=== PATIENT | female | born 1935 | race Caucasian/White ===

== ENCOUNTER 2023-10-25 21:43 | Inpatient (IN) | payer MEDICARE, BC, SELFPAY ==
[2023-10-25] VITALS (9 sets, daily range): BP systolic 159–211; BP diastolic 80–110; BMI 27.7; BMI 26.0
[2023-10-25 16:23] LABS: % Basophils 2.1 % (0-2); % Eosinophils 2.2 % (0-6); % Immature Granulocytes 2.2 % (0-0.5); % Lymphocytes 8.9 % (20.5-51.1); % Monocytes 4.1 % (1.7-9.3); % Neutrophils 80.5 % (42.2-75.2); Absolute Basophils 0.4 10^3/uL (0-0.2); Absolute Eosinophils 0.5 10^3/uL (0-0.7); Absolute Immature Granulocytes 0.5 10^3/uL (0-0.05); Absolute Lymphocytes 1.8 10^3/uL (1.2-3.4); Absolute Monocytes 0.8 10^3/uL (0.1-0.6); Absolute Neutrophils 16.5 10^3/uL (1.4-6.5); Hematocrit 42.6 % (37.0-47.0); Hemoglobin 12.3 g/dL (12.0-16.0); Mean Corp Hgb Conc. 28.9 g/dL (33.0-37.0); Mean Corpuscular Hgb 19.8 pg (27.0-31.0); Mean Corpuscular Volume 68.6 fL (81.0-99.0); Nucleated Red Blood Cells % 0.1 %; Platelet Count 560 10^3/uL (130-400); Red Blood Cell Count 6.21 10^6/uL (4.20-5.40); Red Cell Dist. Width 27.9 % (11.5-14.5); White Blood Cell Count 20.4 10^3/uL (4.8-10.8)
[2023-10-25 16:39] LABS: Normal RBC Morphology No
[2023-10-25 16:41] LABS: Anisocytosis 1+; Hypochromasia 2+; Microcytosis 1+; Ovalocytes 1+; Poikilocytosis 1+; Polychromasia Slight; Target Cells FEW
[2023-10-25 16:42] LABS: ALT (SGPT) 18 U/L (0-35); AST (SGOT) 27 U/L (14-36); Albumin 3.3 g/dl (3.5-5.0); Alkaline Phosphatase 112 U/L (38-126); Blood Urea Nitrogen 28 mg/dl (7-17); Calcium 9.5 mg/dl (8.4-10.2); Carbon Dioxide 22 mmol/L (22-30); Chloride 106 mmol/L (98-107); Glucose 116 mg/dl (70-99); Potassium 3.9 mmol/L (3.5-5.1); Sodium 137 mmol/L (135-145); Total Bilirubin 1.1 mg/dl (0.2-1.3); Total Protein 5.7 g/dl (6.3-8.2); eGFR 54.53
[2023-10-25 16:46] LABS: NT-proBNP 7780 pg/ml
--- NOTE | 2023-10-25 17:54 | ED.GENMED ---
History of Present Illness
General
Chief Complaint: Swelling
Time Seen by Provider: 10/25/23 17:54
Travel History
Have you had any contact with someone who has COVID-19?: No
Do you have any symptoms of coronavirus? Fever > 100 degrees, chills, cough, shortness of breath, sore throat, loss of taste or smell, muscle aches, or headache?: No
History of Present Illness
History of Present Illness:
HPI: Patient currently resides at the [facility]. Daughter notes that she has increasing lower extremity edema, she has nausea, some abdominal pain, and increased abdominal girth. Daughter also feels that she has been more short of breath. Daughter
thinks that she was recently started on a diuretic looking at the med list it appears that it was just low-dose HCTZ. She does not have a history of heart failure. She has had a cholecystectomy and hysterectomy in the past.
EXAM:
GENERAL: Appears in no distress
HEENT: Moist oral mucosa
CARDIOVASCULAR: Regular rate and rhythm
PULMONARY: No significant respiratory distress however the patient does have mild tachypnea, there is some faint rales at the bases
ABDOMEN: Minimal distention but is soft and only minimally tender with no peritoneal signs
NEUROLOGIC: The patient has evidence of dementia, oriented to month but not place, strength is equal in all extremities
EXTREMITIES: Moves all extremities equally, no tenderness, 2+ bilateral lower extremity edema, right greater than left lower extremity varicosities which are chronic
PYSCHIATRIC: Somewhat of a limited historian, limited insight and judgment
TIME OF INITIAL ENCOUNTER: 6 PM
NUMBER AND COMPLEXITY OF PROBLEMS ADDRESSED AT THE ENCOUNTER
� Chronic conditions affecting care: Cognitive impairment, A-fib, high blood pressure, GERD, frequent UTI, chronically elevated white count, anxiety/depression
� Acute Exacerbation and/or Progression of Chronic Illness: This is an acute problem
� Differential Diagnosis includes: New onset CHF, bowel obstruction, volume overload, although patient has a high white count, daughter states that the white count is chronically elevated and vital signs are not consistent with
sepsis
AMOUNT AND/OR COMPLEXITY OF DATA TO BE REVIEWED AND ANALYZED
� I performed an independent evaluation of and my interpretation is:
EKG:
CT: CT of the abdomen pelvis shows bilateral pleural effusions
X-rays: Chest x-ray shows pleural effusion
Laboratory Studies: White count 20.4, hemoglobin 12.3, platelets 560, chemistries relatively unremarkable, BNP 7780
Other:
� Review of other/old records: I reviewed crisis notes from last year regarding 302 which was denied; white count was 18.4 in May 2022
� Clinical information was obtained by an independent historian: I spoke to the daughter for the majority of the history, I also reviewed some of the notes including med list from the [facility]
� Prescriptions/Medications Considered but not given:
� Further testing considered but not performed:
RISK OF COMPLICATIONS AND/OR MORBIDITY OR MORTALITY OF PATIENT MANAGEMENT
� Social determinants of health affecting care: Lives at the [facility]
� Discussion with other providers: Hospitalist for admission at 8:50 PM
� Escalation of care including admission/observation vs risk of discharge considered: Suspected degree of volume overload�she was given empiric Lasix initially. Given the associated abdominal pain with nausea and prior abdominal
surgeries, CT imaging was obtained of the abdomen pelvis. The patient was given Lasix IV as well as nitroglycerin paste for presumed heart failure. It appears that they did try to give her some diuretic (appear to be HCTZ based on the paperwork)
for the lower extremity edema however this has not been working as an outpatient. Leukocytosis is reportedly chronic per family.
Past History
Past History
ED Past Medical History: Psychiatric
Social History
Tobacco: Non-smoker
Alcohol: None
Drug: None
Personal:
Living: with family
Employment: Retired
Family History
Family History: Other (Noncontributory)
Phy Exam
Physical Exam
Physical Exam:
See HPI
Scores
Heart Failure Risk
Heart Failure Risk Score: Not Applicable
Course
Orders/Labs/Results
Orders:
Orders
10/25/23 16:04
CMP [Comprehensive Metabolic Panel] Urgent
Complete Blood Count/With Diff Urgent
NT-proBNP Urgent
10/25/23 18:06
CT Abd/pelvis W Iv Cont Urgent
Comment:
Reason For Exam: abd distension nausea
Furosemide [Lasix] 40 mg IV NOW STA
Ondansetron Injectable [Zofran] 4 mg IV NOW STA
CR Chest - 2 Views Urgent
Comment:
Reason For Exam: edema
10/25/23 20:37
Nitroglycerin Ointment [Nitro-Bid] 1 inch TOPICAL NOW STA
10/25/23 20:51
Electrocardiogram (*1) Urgent
Reason for Study: Shortness of Breath
EKG- Treatment ONCE
10/25/23 21:20
Ferritin Stat
Procalcitonin Routine
PCT Algorithmm Indication: Respiratory
10/25/23 21:27
Admit/Transfer Patient As Directed
Co-Sign Provider:
Level of Care: Inpatient admission
Assign to:: Telemetry
Physician / Group: raoul alonso
Diagnosis: CHF
Reason for Telemetry: Subacute Heart Failure
Date to Stop Telemetry: 10/27/23
Time to Stop Telemetry: 11:00
Reason for Hospitalization: CHF
Expected length of stay greater than two midnights?: Yes
ELOS- Estimated Length of Stay in days: 3
I certify the patient meets the requirements for IP care: Yes
10/25/23 21:29
Code Status As Directed
Resuscitation Status: Do not resuscitate
Reached after discussion with pt or family/Healthcare POA: Yes
DNR Bracelet Application ONCE
10/27/23 11:00
DC Protocol for Telemetry ONCE
Abnormal Lab Results
10/25/23
16:04
WBC 20.4 H 10^3/uL
(4.8-10.8)
RBC 6.21 H 10^6/uL
(4.20-5.40)
MCV 68.6 L fL
(81.0-99.0)
MCH 19.8 L pg
(27.0-31.0)
MCHC 28.9 L g/dL
(33.0-37.0)
RDW 27.9 H %
(11.5-14.5)
Plt Count 560 H 10^3/uL
(130-400)
Abs Immat Gran (auto) 0.5 H 10^3/uL
(0-0.05)
Absolute Neuts (auto) 16.5 H 10^3/uL
(1.4-6.5)
Absolute Monos (auto) 0.8 H 10^3/uL
(0.1-0.6)
Absolute Basos (auto) 0.4 H 10^3/uL
(0-0.2)
Immature Gran % 2.2 H %
(0-0.5)
Neutrophils % 80.5 H %
(42.2-75.2)
Lymphocytes % 8.9 L %
(20.5-51.1)
Basophils % 2.1 H %
(0-2)
BUN 28 H mg/dl
(7-17)
Glucose 116 H mg/dl
(70-99)
Total Protein 5.7 L g/dl
(6.3-8.2)
Albumin 3.3 L g/dl
(3.5-5.0)
10/25/23 16:04
10/25/23 16:04
Vital Signs
Initial and Last Documented VS:
Initial Vital Signs
Temp Pulse Resp BP Pulse Ox
98.3 F 66 18 159/80 98
10/25/23 15:53 10/25/23 15:53 10/25/23 15:53 10/25/23 15:53 10/25/23 15:53
Last Documented Vital Signs
Temp Pulse Resp BP Pulse Ox
98.3 F 82 25 191/95 93
10/25/23 15:53 10/25/23 21:30 10/25/23 21:30 10/25/23 21:17 10/25/23 21:30
*Critical Care Note
Total Time (30-74mins, 75-104mins- exclusive of procedures): Not Applicable
ED Attending Note
-
Portions of this chart may have been created with voice recognition software.� Occasional wrong word or��sound alike� substitutions may have occurred due to the inherent limitations of voice recognition software.
Discharge Plan
Departure
Patient Disposition: Admit
Date of Disposition: 10/25/23
Time of Disposition: 20:50
Presentation/result/management discussed w/ accepting MD/DO: Hospitalist
Discharge Problem:
Congestive heart failure (CHF)
Interventions
Interventions:
*General Assessment Last Done: 10/25/23 18:58
*Neglect/Abuse Screening Last Done: 10/25/23 18:58
ED- Fall Risk Assessment Last Done: 10/25/23 18:58
*ED COVID-19 Vaccine History Last Done: 10/25/23 18:58
ED- Cardiac Assessment Last Done: 10/25/23 18:58
ED- Pulmonary Assessment Last Done: 10/25/23 18:58
ED-Skin Assessment Last Done: 10/25/23 20:48
[2023-10-25] MEDS: ZOFRAN 4 MG IV (18:49)
[2023-10-25] MEDS: LASIX 40 MG IV (18:51)
[2023-10-25] MEDS: NITRO-BID 1 INCH TOPICAL (20:45)
--- NOTE | 2023-10-25 20:53 | HPS.HSE ---
Addendum entered and electronically signed by Nirmal Rollins MD 10/25/23 23:49:
I saw and examined the patient.
The AIR BAG CURER or PA's note was reviewed and I agree with the note.
Comment: see my UPDATE NOTE
Original Note:
Family Physician
-
Family Physician: Immanuel Cazares
Chief Complaint
-
LE edema
History of Present Illness
88 year old with PMH for GOUT, atrial fib, htn , GERD, mood disorder, dementia presented to us with b/l LE edema for past two weeks. daughter noticed it today.patient noticed it two week ago. she was started on Lasix for five days and was switched
to HCTZ yesterday. daughter noticed increase in abdominal girth. denied chest pain, sob. denied fever, chills, cough, congestion. Patient denied headache, dizziness, syncopal episode. Patient denied abdominal pain, nausea, vomiting, diarrhea.
BNP elevated in ER. Chest x-ray, CT of chest with cardiomegaly. Patient received a dose of Lasix in ER. Patient received Nitrosate. Admitting for further management
Patient under palliative care for 3 weeks. She is under [facility] palliative care.
Medical History
Past Medical History
Past Medical History: Reports Other
Additional Past Medical History:
Degenerative joint disease
Hypertension
GERD
Hypertension
Varicose veins of the leg
Paroxysmal A-fib
Polycythemia vera
Past Surgical History: Reports Other
Additional Past Surgical History:
Hysterectomy
Bladder repair
Hernia surgery
Cholecystectomy
Phlebotomy
Social History
Tobacco: Former Smoker
Alcohol: Occasional
Drug: None
Personal: Single
Living: Assisted Living
Family History
Family History: Not pertinent
Allergies / Home Medications
Allergies reflects when Allergies were last updated in [employer].
Home Medications with original date entered in [employer]
Allergy/Medication List:
Allergies
Allergy/AdvReac Type Severity Reaction Status Date / Time
Penicillins Allergy Unknown Unknown Verified 05/31/23 13:58
Home Medications
allopurinol 300 mg tablet 300 mg PO DAILY 10/25/23
cholecalciferol (vitamin D3) 50 mcg (2,000 unit) tablet (Vitamin D3) 50 mcg PO DAILY 10/25/23
conjugated estrogens 0.625 mg/gram vaginal cream (Premarin) 0.625 mg vaginal MOTH 10/25/23
dabigatran etexilate 75 mg capsule 75 mg PO BID 10/25/23
diclofenac sodium 1 % topical gel 4 g topical QID PRN knee pain 10/25/23
escitalopram oxalate 5 mg tablet 5 mg PO DAILY 10/25/23
hydrochlorothiazide 12.5 mg capsule 12.5 mg PO DAILY 10/25/23
lisinopril 20 mg tablet 20 mg PO DAILY 10/25/23
lorazepam 0.5 mg tablet 0.5 mg PO Q6H PRN anxiety 10/25/23
metoprolol succinate 25 mg tablet,extended release 24 hr 25 mg PO DAILY 10/25/23
multivitamin (Daily-Elke tablet) 1 tab PO DAILY 10/25/23
nystatin-triamcinolone 100,000 unit/gram-0.1 % topical ointment 1 applic topical BID PRN apply to affected area 10/25/23
omega-3 acid ethyl esters 1 gram capsule (Lovaza) 1 cap PO DAILY 10/25/23
omeprazole 40 mg capsule,delayed release 40 mg PO DAILY 10/25/23
risperidone 0.25 mg tablet 0.25 mg PO BID 10/25/23
triamcinolone acetonide 0.1 % topical ointment 1 applic topical BID PRN rash on lower back 10/25/23
vitamin E (dl, acetate) 180 mg (400 unit) capsule 180 mg PO DAILY 10/25/23
Review of Systems
-
Constitutional: Reports No Symptoms
EENT: Reports No Symptoms
Respiratory: Reports No Symptoms
Cardiac: Reports No Symptoms
Abdomen/GI: Reports No Symptoms
: Reports No Symptoms
Musculoskeletal: Reports Edema (Bilateral lower extremities edema)
Skin: Reports No Symptoms
Neurological: Reports No Symptoms
Endocrine: Reports No Symptoms
Hematologic/Lymphatic: Reports No Symptoms
Psych: Reports No Symptoms
Physical Exam
Vital Signs
Vital Signs
Temp Pulse Resp BP Pulse Ox
98.3 F 88 18 184/102 91
10/25/23 15:53 10/25/23 20:45 10/25/23 20:17 10/25/23 20:45 10/25/23 20:17
Physical Exam
General: Well Developed, Well Nourished and No Apparent Distress
HEENT: NormoCephalic, Moist mucous membranes and Atraumatic
Respiratory: Clear
Cardiac: S1/S2 and Regular Rhythm; No Murmur or Rub
GI: Soft, Non Tender, Non Distended and Normal Bowel Sounds; No Organomegaly
Rectal: Deferred by Provider
Musculoskeletal: No Clubbing, No Cyanosis and Other (Bilateral lower extremities edema)
Skin: Rash
Neuro: AO x 3 and Nonfocal/grossly intact
Psych: Calm and Apparent Dementia
Laboratory Results
-
10/25/23 16:04
10/25/23 16:04
Laboratory Results
Total Bilirubin 1.1 mg/dl (0.2-1.3) 10/25/23 16:04
AST 27 U/L (14-36) 10/25/23 16:04
ALT 18 U/L (0-35) 10/25/23 16:04
Alkaline Phosphatase 112 U/L (38-126) 10/25/23 16:04
Data Reviewed
-
Diagnostic Radiology: Report Reviewed by me
CT Scan: Report Reviewed by me
Lab Data: Labs Reviewed by me
Impression/Plan
-
# Lower extremities edema/short of breath/ likely from new onset CHF
-BNP 7780
-CT abdomen pelvis with impression of questionable transverse colon wall thickening which can be seen with colitis versus findings due to limited distention. Limited study without oral contrast.Moderate splenomegaly.Mild fecal material throughout
the colon.
Severe diverticulosis. No evidence of acute diverticulitis.Moderate splenomegaly.Simple left renal cyst. Stable Cardiomegaly.Moderate right and small left pleural effusions.Moderate left lower lobe and mild right middle lobe consolidation.
-Chest x-ray with impression of Findings suggesting mild bibasilar pneumonia.Mild cardiomegaly.Small right pleural effusion
-Received Lasix 40 in the ER
-Lasix 40 Mg IV continued
-Strict MARCELO
-Daily weight
-Fluid restriction
-Cardiology consult
# History of polycythemia vera
-WBCs 20.4
-Follows up with hematology as outpatient
# History of hypertension
-Blood pressure elevated in ER
-Nitropaste continued
-Hydralazine as needed for systolic BP greater than 160 and diastolic BP greater than 110
-Hold HCTZ
-Lisinopril continued
# Gout
-Allopurinol continued
# Paroxysmal A-fib
-Obtain EKG
-Pradaxa continued
-Metoprolol continued
# Anxiety/mood disorder/dementia
-Citalopram continued
-Lorazepam continued
-Risperidone continue
# GERD
-PPI continued
# DVT prophylaxis
-Pradaxa
# CODE STATUS
-DNR
--- NOTE | 2023-10-25 21:29 | W.PN.UPDATE ---
Addendum entered and electronically signed by Nirmal Rollins MD 10/25/23 22:56:
Laboratory Tests
10/25/23
21:20
Procalcitonin 0.23
Unremarkable PCT
- Will hold off ABx for now
Original Note:
Update Note
Progress Note Update
This note serves as an addendum to the H&P by information developer CARMELA Lakeshia KERN
I could not get any information from the patient as she has limited insightand error in HPI due to Dementia
Information gathered by chart review and speaking with daughter and son in law and the BARBERING INSTRUCTOR
HPI
88F Recently moved into [facility] , sent to ER [facility] HX Dementia, essential HTN on HCTZ/ BREANNA for Sameera edema:
Per daughter account:
Sameera edema
-Progressively worsened
- associated with nausea abdominal pain. No vomiting or diarrhea
- Daughter reports increased abdominal distension and pain but no pain and tenderness at ER on y exam
- Recently resumed HCTZ.
- HX CHF but not on Lasix, just on BB and ACEI
- No prior TTE in [facility]
- P Card at [facility] Dr Thang Mclain
Under palliative care started 3weeks ago at [facility] for extra resourdes per daughter
Has advanced directives for DNR
ROS:
No recent fever
Denied recent cough and colored sputum
hi WCC is chronic per daughter - unclear with definitive Dxes however per External summary report Dx; PCR
PHX
Primary HTN on Metoprolol, Lisinopril
GERD on PO PPI
Depression and anxiety on Lorazepam PRN , Ecitalporam, Risperidone BID
HX PCR not on active Rx
Reviewed VS: Afebrile HR 88 BP 210/92 RR 26- 18 POx 85- 91
PE
Gen: Not toxic looking , NAD
HEENT: anicteric, moist OM
Neck: supple , JVD
Lungs: mild tachypnea, faint rales at the bases
Cor: Irregular HR , no mm
Abdomen: soft and only minimally tender at
COMMISSARY AGENT: symmetric movements of all exts
MS: 2+ bilateral lower extremity edema,
Psych: limited historian, limited insight and judgment due to undelying dementia
Data
WCC 20
Hgb 12.3
MCV 68 Pending Ferritin
Plt 560
Cr 1.0 - baseline is 1.0 as of 05/29/21
eGFR 54
Unremarkable CMP
proBNP 7780
EKG report
ATRIAL FIBRILLATION
INCOMPLETE RIGHT BUNDLE BRANCH BLOCK
ABNORMAL ECG
NO PREVIOUS ECGS AVAILABLE
CXR: radiologist report
Findings suggesting mild bibasilar pneumonia.
Mild cardiomegaly.
Small right pleural effusion.
CT AP w IV contrast
Questionable transverse colon wall thickening which can be seen with colitis versus findings due to limited distention. Limited study without oral contrast.
- Moderate splenomegaly.
- Mild fecal material throughout the colon.
- Severe diverticulosis. No evidence of acute diverticulitis.
- Moderate splenomegaly
- Simple left renal cyst. Stable
- Cardiomegaly.
- Moderate right and small left pleural effusions.
- Moderate left lower lobe and mild right middle lobe consolidation.
No prior hospitalist admission
ASSESSMENT & PLAN
New acute CHF type unknown
Clinically hypervolemic with b/l Sameera edema
pro BNP 7780
HTN emergency
HX Primary HTN
P Card at [facility] Dr Thang Mclain
- cont. NTP
- add IV Hydralazine for SBP > 165, DBP > 110
- IV Lasix 40 daily.
- To hold HCTX
- FR 1000 cc for now
- cont. Lisinopril and Metoprolol succinate
- ECHO before DC
- CBC card consult
HX Prx AF ; In AF with control VR
- cont. BB
- on chr Pradaxa
CXR radiologist report suggesting mild bibasilar pneumonia.
No productive cough , no recent fever
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
- check PCT
- Hold of ABx for now
HX PCR with chronic leucocytosis & Thombocytosis
- P Glove Operator [facility]
HX Cognitive disorder - HX suggestive of mild dementia vs MCI
Under palliative care started 3weeks ago at [facility]
- DNR per advanced directives per daughter and son in law at bed side
DVT Px: on Pradaxa
Code: DNR
IP TLM
[2023-10-25 22:06] LABS: Procalcitonin 0.23 ng/ml (0.0-0.25)
[2023-10-25 22:29] LABS: Ferritin 16.3 ng/ml (11.1-264.0)
--- NOTE | 2023-10-25 23:30 | PTCARENOTE ---
Receive pt from ER. Pt alert oriented X3, confused to the place. Pt assist X1 to her bed, slow and weak. Pt comforted by son in law who is at the bedside. Pt's health history provided by pt's daughter (Rea) via phone. Pt on AFib on telemonitor.
BN=089/97, HR=84, T=97.8, RR=17, SpO2=97% on RA. Pt oriented to the room, bed alarm in place. Will continue to monitor the pt.
[2023-10-25] MEDS: NITRO-BID 0.5 INCH TOPICAL (23:47)
[2023-10-26] VITALS (7 sets, daily range): BP systolic 130–156; BP diastolic 68–92; PULSE 81; O2SAT 94; BMI 25.9
[2023-10-26] MEDS: NITRO-BID 0.5 INCH TOPICAL ×4 (05:19→23:06)
[2023-10-26] MEDS: PROTONIX 40 MG PO (07:44)
[2023-10-26] MEDS: ZYLOPRIM 300 MG PO (07:44)
[2023-10-26] MEDS: VITAMIN D3 (cholecalciferol) 50 MCG PO (07:44)
[2023-10-26] MEDS: LEXAPRO 5 MG PO (07:44)
[2023-10-26] MEDS: RISPERDAL 0.25 MG PO ×2 (07:44→20:34)
[2023-10-26] MEDS: TOPROL XL 25 MG PO (07:45)
[2023-10-26] MEDS: ATIVAN 0.5 MG PO ×3 (07:45→23:07)
[2023-10-26] MEDS: ZESTRIL 20 MG PO (07:45)
[2023-10-26] MEDS: LASIX 40 MG IV (07:46)
--- NOTE | 2023-10-26 07:50 | PTCARENOTE ---
Pt. very agitated, trying to leave her room thinking she is at the [facility] where she normally lives. This nurse unable to reorient her. Dr. Barnett and Nursing supervisor shed workers made aware. Pt. daughter called to update as well. PRN Ativan and morning
medications given as ordered.
--- NOTE | 2023-10-26 08:23 | W.PN.HOSP.TC ---
Today's Communication/Plan
-
see bold
Assessment / Plan
Assessment / Plan
Gen: NAD, Awake and alert
Eyes: EOMI, PERRLA, no scleral icterus.
Neck: supple.
CV: irreg/irreg, +S1/S2, no m/r/g.
Resp: CTAB, no rales, wheezes, or rhonchi.
Abd: +BS, soft, NT, ND
Skin: No rashes. 3+ B/L LE edema
Neuro: CN 2-12 intact, non-focal.
Psych: Normal mood and affect.
CXR: Findings suggesting mild bibasilar pneumonia. Mild cardiomegaly. Small right pleural effusion.
CT A/P: questionable transverse colon wall thickening which can be seen with colitis versus findings due to limited distention. Limited study without oral contrast.Moderate splenomegaly.Mild fecal material throughout the colon. Severe
diverticulosis. No evidence of acute diverticulitis.Moderate splenomegaly.Simple left renal cyst. Stable Cardiomegaly.Moderate right and small left pleural effusions.Moderate left lower lobe and mild right middle lobe consolidation.
Acute CHF:
-saturating well on RA
-proBNP 7780
-cont IV Lasix
-check echo
-I/Os, daily wts, FR
-Cardiology consult
Other problems:
Essential hypertension: Cont ACEi/BB, hydralazine PRN
h/o polycythemia vera
Gout: cont allopurinol
Paroxysmal A-fib: cont BB/Pradaxa
Anxiety/mood disorder/dementia: cont Celexa/Ativan/Risperidone
GERD: cont PPI
DNR/Pradaxa
Anticipated Discharge: 24 - 48 hours
Subjective/Interval History
-
Date of Service: October 26, 2023
Denies CP/SOB.
Objective Data
-
Labs:
Laboratory Results
10/26/23 10/26/23
06:10 06:11
WBC Pending
Hgb Pending
Hct Pending
Plt Count Pending
Sodium Pending
Potassium Pending
Chloride Pending
Carbon Dioxide Pending
BUN Pending
Creatinine Pending
Glucose Pending
Calcium Pending
Total Bilirubin Pending
AST Pending
ALT Pending
Alkaline Phosphatase Pending
Vital Signs:
Vital Signs
Temp Pulse Resp BP Pulse Ox
97.5 F 87 17 156/88 93
10/26/23 03:54 10/26/23 07:46 10/26/23 03:54 10/26/23 07:46 10/26/23 03:54
I&O
10/25/23 10/26/23 10/27/23
06:59 06:59 06:59
Intake Total 0 / 0
Balance 0 / 0
[2023-10-26 08:47] LABS: Hematocrit 42.5 % (37.0-47.0); Hemoglobin 12.3 g/dL (12.0-16.0); Mean Corp Hgb Conc. 28.9 g/dL (33.0-37.0); Mean Corpuscular Hgb 20.3 pg (27.0-31.0); Platelet Count 519 10^3/uL (130-400); Red Blood Cell Count 6.07 10^6/uL (4.20-5.40); Red Cell Dist. Width 27.8 % (11.5-14.5); White Blood Cell Count 17.2 10^3/uL (4.8-10.8)
--- NOTE | 2023-10-26 09:18 | CON.CAR ---
Addendum entered and electronically signed by Jorge Starks MD 10/26/23 11:09:
I saw and examined the patient.
The ORACLE TECHNICAL ARCHITECT's note was reviewed and I agree with the note.
Comment: 88F with AF admitted with HFpEF.
- diurese
- echo Saturday
- [id number] if not cost prohibitive
Original Note:
Consultation
Consultation Request
Date/Time Consultation Requested: 10/25/232302
Date/Time Consultation Performed: 10/26/23914
Requesting Provider: Lakeshia Cha
Performing Provider: Eulalia CORDERO for
Reason for Consultation: CHF
Medical History
-
Chief Complaint: LE edema
History of Present Illness:
88 y/o female (patient of Dr. Mclain) who has persistent AFIB on Pradaxa, GERD, hypertension, dementia, polycythemia vera who is here for evaluation of LE edema for 2 weeks per chart (patient forgetful). Of note, it looks like she lives at the
[facility] and has palliative care services, and that Lasix course was recently trialed as OP. She is admitted for management of acute CHF. CXR concerning for PNA per radiology read, but procal neg so abx held.
Past Medical History
Past Medical History: Arrhythmias, GERD, HTN and Other (dementia, polycythemia vera)
Social History
Living: Other (Lives at 'the [facility]')
Family History
Family History: Reviewed & Not Pertinent
Allergies / Home Medications
Allergy/AdvReac Type Severity Reaction Status Date / Time
Penicillins Allergy Unknown Unknown Verified 05/31/23 13:58
�Medication �Instructions �Recorded �Confirmed �Type
allopurinol 300 mg tablet 300 mg PO DAILY Gout 10/25/23 10/25/23 History
cholecalciferol (vitamin D3) 50 50 mcg PO DAILY Supplement 10/25/23 10/25/23 History
mcg (2,000 unit) tablet (Vitamin
D3)
conjugated estrogens 0.625 mg/gram 0.625 mg vaginal MOTH hormone 10/25/23 10/25/23 History
vaginal cream (Premarin)
dabigatran etexilate 75 mg capsule 75 mg PO BID Blood Clot 10/25/23 10/25/23 History
Prevention/Tx
diclofenac sodium 1 % topical gel 4 g topical QID PRN knee pain 10/25/23 10/25/23 History
escitalopram oxalate 5 mg tablet 5 mg PO DAILY Mental Health/Anxiety 10/25/23 10/25/23 History
hydrochlorothiazide 12.5 mg capsule 12.5 mg PO DAILY Blood Pressure 10/25/23 10/25/23 History
lisinopril 20 mg tablet 20 mg PO DAILY Blood Pressure 10/25/23 10/25/23 History
lorazepam 0.5 mg tablet 0.5 mg PO Q6H PRN anxiety 10/25/23 10/25/23 History
metoprolol succinate 25 mg 25 mg PO DAILY Blood Pressure 10/25/23 10/25/23 History
tablet,extended release 24 hr
multivitamin (Daily-Elke tablet) 1 tab PO DAILY Supplement 10/25/23 10/25/23 History
nystatin-triamcinolone 100,000 1 applic topical BID PRN apply to 10/25/23 10/25/23 History
unit/gram-0.1 % topical ointment affected area
omega-3 acid ethyl esters 1 gram 1 cap PO DAILY High Cholesterol 10/25/23 10/25/23 History
capsule (Lovaza)
omeprazole 40 mg capsule,delayed 40 mg PO DAILY Gastrointestinal 10/25/23 10/25/23 History
release Issue
risperidone 0.25 mg tablet 0.25 mg PO BID Mental 10/25/23 10/25/23 History
Health/Anxiety
triamcinolone acetonide 0.1 % 1 applic topical BID PRN rash on 10/25/23 10/25/23 History
topical ointment lower back
vitamin E (dl, acetate) 180 mg 180 mg PO DAILY Supplement 10/25/23 10/25/23 History
(400 unit) capsule
Review of Systems
-
History Source: Patient (forgetful) and Other (chart)
All other systems: Negative unless noted
Respiratory: Trouble Breathing (on and off per patient)
Musculoskeletal: Edema
Physical Exam
Vital Signs
Temp Pulse Resp BP Pulse Ox
98 F 87 18 156/88 95
10/26/23 07:45 10/26/23 07:46 10/26/23 07:45 10/26/23 07:46 10/26/23 07:45
Lab Results
10/26/23 06:11
Fui-W-Ssnyeyvhmpp Pept 7780 pg/ml 10/25/23 16:04
Physical Exam
General: Well Developed, Well Nourished and No Apparent Distress
HEENT: Normocephalic
Respiratory: Crackles (b/l bases)
Cardiac: Irregular Rhythm and Peripheral Edema (moderate BLE edema)
Musculoskeletal: Edema
Skin: Warm and Dry
Neuro: AO x 3
Psych: Calm
Impression / Plan
-
Acute HF, type unknown:
-BNP elevated, LE edema noted, pleural effusions on imaging, SOB on and off per patient
-echo 2019 normal- update echo
-agree with IV lasix, which requires intensive monitoring- AM labs pending
Persistent AFIB:
-stable, rate-controlled
-Continue BB and Pradaxa
HTN:
-on ACEI and BB
-monitor with diuresis
Data Reviewed
-
EKG: Tracing Personally Visualized and interpreted (AFIB with PVC's)
Radiology: Report Reviewed by me (CXR: 10/25/23- Findings suggesting mild bibasilar pneumonia. Mild cardiomegaly. Small right pleural effusion.)
CT Scan: Report Reviewed by me (CT scan: Questionable transverse colon wall thickening which can be seen with colitis versus findings due to limited distention. Severe diverticulosis. No evidence of acute diverticulitis. Mod splenomegaly.
Cardiomegaly. Mod R and small L pleural effusions. Moderate LLL and mild RML consolidation.)
Medical Tests (Nuc Med, Echo etc): Report Reviewed by me (normal OP echo 2019)
Labs: Labs Reviewed by me
[2023-10-26] MEDS: PRADAXA 75 MG PO ×2 (09:52→20:33)
--- NOTE | 2023-10-26 10:00 | PTCARENOTE ---
Pt. daughter at bedside, pt. calm and cooperative at this time resting in bed comfortably. Call mancini within reach.
--- NOTE | 2023-10-26 10:43 | CM ---
Patient seen at bedside with daughter. Patient daughter reports that her mother is from [facility] and is there as a non memory care resident level I due to being able to walk with walker and knowing family, cognition is mildly impaired per daughter
but she does focus on thoughts and daughter reports that she uses activities to distract patient. Patient daughter indicated that her sister did contact Palliative care recently and they are anticipating a nurse coming to [facility] to assess patient.
Patient daughter indicated that she was hoping patient would be able to return to Personal Care. Patient in fall 2022, daughter indicated that the relationship was not a good one. Patient PCP is Dr. Cazares, and [facility]
[place]. CM will continue to follow for discharge planning needs.
Plan; return to Personal care, watch for SNF needs; VN needs if able to return to personal care
[2023-10-26 10:55] LABS: ALT (SGPT) 16 U/L (0-35); AST (SGOT) 30 U/L (14-36); Alkaline Phosphatase 118 U/L (38-126); Blood Urea Nitrogen 26 mg/dl (7-17); Calcium 9.2 mg/dl (8.4-10.2); Carbon Dioxide 25 mmol/L (22-30); Chloride 102 mmol/L (98-107); Direct Bilirubin 0.4 mg/dl (0.0-0.4); Estimated Creatinine Clearance 33 ml/min; Glucose 65 mg/dl (70-99); HDL Cholesterol 50 mg/dl; LDL Cholesterol, Calculated 46 mg/dl; Magnesium 1.5 mg/dl (1.6-2.3); Sodium 139 mmol/L (135-145); Total Bilirubin 1.1 mg/dl (0.2-1.3); Total Cholesterol 108 mg/dl (50-199); Total Protein 5.3 g/dl (6.3-8.2); Triglyceride 63 mg/dl (10-149); Very Low Density Lipoprotein 12 mg/dl (0-30); eGFR 54.53
[2023-10-26 11:07] LABS: TSH Reflex To Free T4 5.74 uIU/ml (0.47-4.68)
[2023-10-26] MEDS: LIDOCAINE 4% PATCH 1 PATCH TOPICAL (17:37)
[2023-10-26] MEDS: TYLENOL 650 MG PO (17:38)
[2023-10-27] VITALS (8 sets, daily range): BP systolic 92–170; BP diastolic 56–99; BMI 25.7
[2023-10-27] MEDS: APRESOLINE 10 MG IV (05:16)
[2023-10-27] MEDS: NITRO-BID 0.5 INCH TOPICAL ×3 (05:16→16:50)
[2023-10-27] MEDS: ATIVAN 0.5 MG PO ×3 (05:17→17:57)
[2023-10-27] MEDS: TYLENOL 650 MG PO ×2 (05:18→11:41)
[2023-10-27 06:17] LABS: Hematocrit 44.7 % (37.0-47.0); Hemoglobin 12.8 g/dL (12.0-16.0); Mean Corp Hgb Conc. 28.6 g/dL (33.0-37.0); Mean Corpuscular Hgb 19.9 pg (27.0-31.0); Mean Corpuscular Volume 69.4 fL (81.0-99.0); Platelet Count 599 10^3/uL (130-400); Red Blood Cell Count 6.44 10^6/uL (4.20-5.40); Red Cell Dist. Width 27.5 % (11.5-14.5); White Blood Cell Count 20.4 10^3/uL (4.8-10.8)
[2023-10-27 06:34] LABS: Blood Urea Nitrogen 32 mg/dl (7-17); Calcium 9.3 mg/dl (8.4-10.2); Carbon Dioxide 27 mmol/L (22-30); Chloride 104 mmol/L (98-107); Estimated Creatinine Clearance 30 ml/min; Glucose 91 mg/dl (70-99); Sodium 135 mmol/L (135-145); eGFR 48.63
[2023-10-27] MEDS: REFRESH EYE DROPS (PF) 1 DROPS BOTH EYES (07:05)
[2023-10-27] MEDS: LIDOCAINE 4% PATCH 1 PATCH TOPICAL (07:37)
[2023-10-27] MEDS: TOPROL XL 25 MG PO (07:38)
[2023-10-27] MEDS: VITAMIN D3 (cholecalciferol) 50 MCG PO (07:38)
[2023-10-27] MEDS: PROTONIX 40 MG PO (07:39)
[2023-10-27] MEDS: LEXAPRO 5 MG PO (07:39)
[2023-10-27] MEDS: LASIX 40 MG IV (07:39)
[2023-10-27] MEDS: ZYLOPRIM 300 MG PO (07:39)
[2023-10-27] MEDS: RISPERDAL 0.25 MG PO ×2 (07:39→20:13)
[2023-10-27] MEDS: ZESTRIL 20 MG PO (07:39)
[2023-10-27] MEDS: PRADAXA 75 MG PO ×2 (07:39→20:13)
--- NOTE | 2023-10-27 10:12 | CM ---
Patient sleeping in room, patient son in law at bedside, plan remains to return to Personal care, will need to confirm with nursing that they can accept. CM will continue to follow for discharge planning needs.
Plan; return to personal care vs SNF
--- NOTE | 2023-10-27 10:29 | W.PN.CD ---
Today's Communication / Plan
-
- continue Lasix
- update echo tomorrow
Impression / Plan
-
Impression: 88F with AF admitted with HFpEF.
Plan:
Acute HF, type unknown:
- continue Lasix
- echo 2019 normal - update echo tomorrow
Persistent AFIB:
-stable, rate-controlled
-Continue BB and Pradaxa
HTN:
-on ACEI and BB
-monitor with diuresis
Dementia
Subjective: No CP, palps, or dyspnea. She reports blurriness.
Laboratory Data
10/27/23
05:57
WBC 20.4 H
Hgb 12.8
Plt Count 599 H
Creatinine 1.1 H
Selected Entries
10/25/23
23:27 10/27/23
06:00
Actual Weight 146 lb 9 oz 145 lb
Generic Name Dose Route Start Last Admin
Trade Name Freq PRN Reason Stop Dose Admin
Dabigatran 75 mg 10/26/23 08:00 10/27/23 07:39
Dabigatran Etexilate (Pradaxa) 75 Mg Capsule PO 11/23/23 07:59 75 mg
BID KJ
Lisinopril 20 mg 10/26/23 08:00 10/27/23 07:39
Lisinopril 20 Mg Tablet PO 11/23/23 07:59 20 mg
DAILY KJ
Metoprolol Succinate 25 mg 10/26/23 08:00 10/27/23 07:38
Metoprolol 25 Mg Extended Release Tablet PO 11/23/23 07:59 25 mg
DAILY KJ
Furosemide 40 mg 10/26/23 08:00 10/27/23 07:39
Furosemide 40 Mg (10 Mg/Ml) 4 Ml Vial IV 11/23/23 07:59 40 mg
DAILY KJ
Nitroglycerin 0.5 inch 10/26/23 00:00 10/27/23 05:16
Nitroglycerin 1 Inch/1 Gram Packet TOPICAL 11/23/23 00:00 0.5 inch
Q6 KJ
Physical Exam
Vital Signs/Labs
Vital Signs
Temp Pulse Resp BP Pulse Ox
36.4 C 76 18 160/77 96
10/27/23 07:29 10/27/23 07:38 10/27/23 07:29 10/27/23 07:38 10/27/23 07:35
10/26/23 10/27/23 10/28/23
06:59 06:59 06:59
Actual Weight 146 lb 145 lb
10/27/23 05:57
10/27/23 05:57
Magnesium 1.5 mg/dl (1.6-2.3) L 10/26/23 06:10
Triglycerides 63 mg/dl (10-149) 10/26/23 06:10
LDL Cholesterol, Calc 46 mg/dl 10/26/23 06:10
VLDL Cholesterol, Calc 12 mg/dl (0-30) 10/26/23 06:10
HDL Cholesterol 50 mg/dl 10/26/23 06:10
Free T4 1.10 ng/dl (0.78-2.19) 10/26/23 06:10
10/25/23
16:04
Jyv-T-Ynznwtvequr Pept 7780
Physical Exam
Constitutional: No acute distress
EENT: Anicteric and Moist mucous membranes
Cardiovascular: Systolic murmur absent, Diastolic murmur absent and Pedal edema present
Respiratory: Respiratory effort normal
GI: Soft, Distention absent and Non tender
Neuro/Psych: Alert
Data Reviewed
-
Date of Service: October 27, 2023
--- NOTE | 2023-10-27 13:19 | W.PN.HOSP.TC ---
Today's Communication/Plan
-
Doxy
Compression therapy
ECHO in am
Repeat CXR in am
Speech eval.
Assessment / Plan
Assessment / Plan
had ear ache and eye pain this am
None now
eye- pupils rective , no redness, no pain with palpation
Ears- Normal Ear drum mild cerumen left ear.
CVS: S1-S2 normal
Chest: CTA B/L
Abdomen: Soft, NT / Bowel sounds present
Extremities: B/L edema
SWITCH TENDER: Non focal exam, slightly confused.
CXR: Findings suggesting mild bibasilar pneumonia. Mild cardiomegaly. Small right pleural effusion.
CT A/P: questionable transverse colon wall thickening which can be seen with colitis versus findings due to limited distention. Limited study without oral contrast.Moderate splenomegaly.Mild fecal material throughout the colon. Severe
diverticulosis. No evidence of acute diverticulitis.Moderate splenomegaly.Simple left renal cyst. Stable Cardiomegaly.Moderate right and small left pleural effusions.Moderate left lower lobe and mild right middle lobe consolidation.
#Acute CHF:
-saturating well on RA
-proBNP 7780
-cont IV Lasix
-check echo
-I/Os, daily wts, FR
-Compression therapy to lower extremity
-Cardiology consult
#Pneumonia ON CT and CXR (Moderate left lower lobe and mild right middle lobe consolidation.)
In this elderly pt I will start AB, Doxy
Also get speech eval to rule out aspiration
If aspiration found, needs broader AB
# Questionable colitis on the CT however no abdominal pain
# Blurry vision earlier today-outpatient ophthalmology follow-up discussed with the patient's daughter
# Earache-no pathology found on exam
#Essential hypertension: Cont ACEi/BB, hydralazine PRN
#h/o polycythemia vera with splenomegaly
#Gout: cont allopurinol
#Paroxysmal A-fib: cont BB/Pradaxa
#Anxiety/mood disorder/dementia: cont Celexa/Ativan/Risperidone
#GERD: cont PPI
# Severe diverticulosis
#DVT Prophylaxis- Pradaxa
#DNR
Discussed with son-in-law at bedside
Discussed with daughter on the phone from son-in-law's phone. She is aware about compression therapy states that patient has not been using it since she has been to [place].
Discussed with nursing at bedside
Total time spent with examination, discussion with nursing, family, reviewing images, placing orders,51 minutes
Anticipated Discharge: 24 - 48 hours
Subjective/Interval History
-
Date of Service: October 27, 2023
Objective Data
-
Labs:
Laboratory Results
10/27/23
05:57
WBC 20.4 H
Hgb 12.8
Hct 44.7
Plt Count 599 H
Sodium 135
Potassium 4.0
Chloride 104
Carbon Dioxide 27
BUN 32 H
Creatinine 1.1 H
Glucose 91
Calcium 9.3
Vital Signs:
Vital Signs
Temp Pulse Resp BP Pulse Ox
97.7 F 69 16 110/64 96
10/27/23 11:33 10/27/23 11:41 10/27/23 11:33 10/27/23 11:41 10/27/23 11:33
I&O
10/26/23 10/27/23 10/28/23
06:59 06:59 06:59
Intake Total 0 / 0 900 / 900
Output Total 1400 / 1400
Balance 0 / 0 -500 / -500
[2023-10-27 13:55] LABS: Magnesium 1.4 mg/dl (1.6-2.3)
[2023-10-27 14:35] LABS: Urine Albumin 1+ (Neg - Trace); Urine Bilirubin Negative (Negative); Urine Color Yellow; Urine Glucose Negative (Negative); Urine Ketone Negative (Negative); Urine Leukocyte 2+ (Negative); Urine Nitrite Negative (Negative); Urine Occult Blood Negative (Negative); Urine Urobilinogen Negative (Neg - 1+)
[2023-10-27 15:06] LABS: Urine Character Slightly Cloudy (Clear)
[2023-10-27] MEDS: VIBRAMYCIN 100 MG PO (15:08)
[2023-10-27 15:27] LABS: Urine Squamous Cell 21-25 /LPF (Few)
[2023-10-27 15:30] LABS: Urine Bacteria Many (Negative); Urine White Cell 40-50 /HPF (0-5)
[2023-10-27] MEDS: DICLOFENAC 1% TOPICAL GEL TOPICAL (16:59)
[2023-10-27] MEDS: DICLOFENAC 1% TOPICAL GEL 100 GRAM TOPICAL (21:49)
[2023-10-28] VITALS (8 sets, daily range): BP systolic 114–175; BP diastolic 65–94; PULSE 64; O2SAT 98; BMI 25.2
[2023-10-28] MEDS: NITRO-BID 0.5 INCH TOPICAL ×4 (00:37→17:36)
[2023-10-28] MEDS: ATIVAN 0.5 MG PO ×3 (01:20→17:45)
[2023-10-28 05:26] LABS: Hematocrit 45.7 % (37.0-47.0); Hemoglobin 13.4 g/dL (12.0-16.0); Mean Corp Hgb Conc. 29.3 g/dL (33.0-37.0); Mean Corpuscular Hgb 19.9 pg (27.0-31.0); Mean Corpuscular Volume 67.9 fL (81.0-99.0); Platelet Count 629 10^3/uL (130-400); Red Blood Cell Count 6.73 10^6/uL (4.20-5.40); Red Cell Dist. Width 27.8 % (11.5-14.5); White Blood Cell Count 20.5 10^3/uL (4.8-10.8)
[2023-10-28 06:00] LABS: Blood Urea Nitrogen 37 mg/dl (7-17); Calcium 9.6 mg/dl (8.4-10.2); Carbon Dioxide 25 mmol/L (22-30); Chloride 104 mmol/L (98-107); Estimated Creatinine Clearance 30 ml/min; Glucose 103 mg/dl (70-99); Potassium 4.2 mmol/L (3.5-5.1); Sodium 136 mmol/L (135-145); eGFR 48.63
[2023-10-28] MEDS: ZYLOPRIM 300 MG PO (08:09)
[2023-10-28] MEDS: PRADAXA 75 MG PO ×2 (08:09→19:43)
[2023-10-28] MEDS: VITAMIN D3 (cholecalciferol) 50 MCG PO (08:10)
[2023-10-28] MEDS: LEXAPRO 5 MG PO (08:10)
[2023-10-28] MEDS: ZESTRIL 20 MG PO (08:10)
[2023-10-28] MEDS: PROTONIX 40 MG PO (08:10)
[2023-10-28] MEDS: TOPROL XL 25 MG PO (08:11)
[2023-10-28] MEDS: RISPERDAL 0.25 MG PO ×2 (08:11→19:44)
[2023-10-28] MEDS: LASIX 40 MG IV (08:11)
[2023-10-28] MEDS: DICLOFENAC 1% TOPICAL GEL 100 GRAM TOPICAL ×3 (08:12→17:36)
[2023-10-28] MEDS: LIDOCAINE 4% PATCH 1 PATCH TOPICAL (08:12)
--- NOTE | 2023-10-28 08:47 | W.PN.HOSP.TC ---
Addendum entered and electronically signed by Bassam Villegas MD 10/28/23 16:28:
Persistent Afib
Original Note:
Today's Communication/Plan
-
see bold
Assessment / Plan
Assessment / Plan
Gen: NAD, Awake and alert
Eyes: EOMI, PERRLA, no scleral icterus.
Neck: supple.
CV: RRR, +S1/S2, no m/r/g.
Resp: CTAB, no rales, wheezes, or rhonchi.
Abd: +BS, soft, NT, ND
Skin: No rashes. 1+ B/L LE edema
Neuro: CN 2-12 intact, non-focal.
Psych: Normal mood and affect.
CXR: Findings suggesting mild bibasilar pneumonia. Mild cardiomegaly. Small right pleural effusion.
CT A/P: Questionable transverse colon wall thickening which can be seen with colitis versus findings due to limited distention. Limited study without oral contrast. Moderate splenomegaly. Mild fecal material throughout the colon. Severe
diverticulosis. No evidence of acute diverticulitis. Moderate splenomegaly. Simple left renal cyst. Stable Cardiomegaly. Moderate right and small left pleural effusions. Moderate left lower lobe and mild right middle lobe consolidation.
Acute CHF:
-saturating well on RA
-proBNP 7780
-cont IV Lasix
-check echo
-I/Os, daily wts, FR
-Compression therapy to lower extremity
-Cardiology following
Bibasilar PNA:
-repeat procal (first procal NEG)
-Leukocytosis noted but this is chronic
-afebrile
-speech recs VSE
-start Augmentin for now
Other problems:
Blurry vision on 10/27/23: outpatient ophthalmology follow-up
Essential hypertension: Cont ACEi/BB, start Norvasc 5, hydralazine PRN
h/o polycythemia vera with splenomegaly
Gout: cont allopurinol
Paroxysmal A-fib: cont BB/Pradaxa
Anxiety/mood disorder/dementia: cont Celexa/Ativan/Risperidone
GERD: cont PPI
Severe diverticulosis
DNR/Pradaxa
Anticipated Discharge: Within 24 hours
Subjective/Interval History
-
Date of Service: October 28, 2023
Denies CP/SOB.
Objective Data
-
Labs:
Laboratory Results
10/28/23
05:04
WBC 20.5 H
Hgb 13.4
Hct 45.7
Plt Count 629 H
Sodium 136
Potassium 4.2
Chloride 104
Carbon Dioxide 25
BUN 37 H
Creatinine 1.1 H
Glucose 103 H
Calcium 9.6
Vital Signs:
Vital Signs
Temp Pulse Resp BP Pulse Ox
97.7 F 75 18 175/94 95
10/28/23 03:55 10/28/23 05:12 10/28/23 03:55 10/28/23 08:11 10/28/23 03:55
I&O
10/27/23 10/28/23 10/29/23
06:59 06:59 06:59
Intake Total 900 / 900 900 / 900
Output Total 1400 / 1400
Balance -500 / -500 900 / 900
--- NOTE | 2023-10-28 09:03 | PTOTSP ---
Dysphagia Evaluation
Patient presents with signs concerning for mild oral/pharyngeal dysphagia and is at risk for this given PMH dementia and GERD. Given concerns for PNA this admission and patient c/o dysphagia with solids, objective assessment via video swallow study
warranted.
Recommend:
1. Regular (pick soft/moist foods), Thin Liquids
2. Strategies: upright position, single sips, soften/moisten foods, remain upright 30 minutes post meal as a reflux precaution
3. Medications as best tolerated
4. Video swallow study to objectively assess pharyngeal stage of swallowing.
[2023-10-28] MEDS: MAGNESIUM SULFATE 50 IV (09:43)
[2023-10-28] MEDS: NORVASC 5 MG PO (10:31)
[2023-10-28] MEDS: AUGMENTIN 875 MG/125 MG 1 TABLET PO ×2 (10:31→19:43)
--- NOTE | 2023-10-28 10:36 | W.PN.CD ---
Today's Communication / Plan
-
Review echo (not available yet)
Continue Lasix
Consider Aldactone and SGLT inhibitors, ARNI
Impression / Plan
-
Background: 88F with AF admitted with HFpEF.
Acute HF, type unknown:
- Weight slowly coming down, still with signif bilat LE edema
- continue Lasix
- echo 2019 normal - update echo tomorrow
- Adjust meds based on echo
- Can consider SGLT inhibitor and Aldactone, ARNI => Will ask copay from case management
Persistent AFIB:
-stable, rate-controlled
-Continue BB and Pradaxa
HTN:
-on ACEI and BB
-monitor with diuresis
Dementia
Subjective: No CP, palps, or dyspnea. She reports blurriness.
Physical Exam
Vital Signs/Labs
Vital Signs
Temp Pulse Resp BP Pulse Ox
97.8 F 80 18 175/94 93
10/28/23 07:30 10/28/23 07:30 10/28/23 07:30 10/28/23 10:31 10/28/23 07:30
10/27/23 10/28/23 10/29/23
06:59 06:59 06:59
Actual Weight 65.771 kg 64.552 kg
10/28/23 05:04
10/28/23 05:04
Magnesium 1.4 mg/dl (1.6-2.3) L 10/27/23 05:57
Triglycerides 63 mg/dl (10-149) 10/26/23 06:10
LDL Cholesterol, Calc 46 mg/dl 10/26/23 06:10
VLDL Cholesterol, Calc 12 mg/dl (0-30) 10/26/23 06:10
HDL Cholesterol 50 mg/dl 10/26/23 06:10
Free T4 1.10 ng/dl (0.78-2.19) 10/26/23 06:10
10/25/23
16:04
Lsd-U-Yetdsraqoea Pept 7780
Physical Exam
Constitutional: No acute distress
EENT: Anicteric
Cardiovascular: Rhythm/rate is irregular, Pedal edema present (at least 2+) and S1S2 is normal
Respiratory: Respiratory effort normal and Lungs clear to auscul.
GI: Soft
Neuro/Psych: Alert
Data Reviewed
-
Date of Service: October 28, 2023
[2023-10-28 10:57] LABS: Procalcitonin 0.16 ng/ml (0.0-0.25)
--- NOTE | 2023-10-28 11:12 | CM ---
Addendum entered by Celeste Crow 10/28/23 16:02:
CM reviewed chart and ADC <24 hours
Call with yina Buchanan at [facility]
Clinicals reviewed and pt accepted back with readmission pending no further functional decline
Referral to Marcos/Tony via [facility]
Made CM aware pt recently switched meds to mail order [facility]
Med pricing through amb orders for [facility]
Farxiga 10mg QD- no coverage
Jardiance 10 mg QD $75/30 days or $225/90 days [facility]
Entreso 49/51 BID $75/30 days or $225/90 days [facility]
Per Dewayne[facility], [facility] able [facility] due to substantial cost savings
Bedside meeting with pt and daughters- they are in agreement with costs of meds through [facility]
Update to Dr. Grijalva/HÉCTOR
Discharge Disposition- return [facility] with Manjeet/Tony VN
Original Note:
CM consulted for med pricing
Confirmed through ambulatory orders
Farxiga 10mg QD- no coverage
Jardiance 10 mg QD $75/30 days or $100[facility]
Entreso 49/51 BID $75/30 days or $100/90 days [facility]
Update to Dr Grijalva/HÉCTOR
--- NOTE | 2023-10-28 16:23 | PN.CDI ---
CDI
- -
CDI:
Physician Documentation Request
Admit Date: 10/25/23 21:43
Dear Doctor Bakari,
Please review the following and provide your response in the progress notes.
Clinical Indicators:
Pt admitted with new onset CHF
There is potentially conflicting documentation in the record regarding the type of afib.
Documented per cardiology consult/notes,' Persistent AFIB:stable, rate-controlled Continue BB and Pradaxa..'
Progress notes ,' Paroxysmal A-fib: cont BB/Pradaxa...'
If possible, please provide further specificity regarding atrial fibrillation, such as:
Persistent atrial fibrillation - episodes of continuous AF that last more than 7 days and do not self-terminate
Paroxysmal atrial fibrillation - terminates spontaneously or with intervention within 7 days of onset
Other - please specify
Use of terms such as suspected, likely, concern for, or probable (associated with a specific diagnosis that is being evaluated, monitored, or treated as if it exists) are acceptable and can be coded in the inpatient setting, when documented at the
time of discharge.
Thank you,
Vonda Reynolds RN
CDI Specialist
[place] [facility]
Please use your independent medical judgment in providing your response.
[2023-10-28] MEDS: TYLENOL 650 MG PO (19:44)
--- NOTE | 2023-10-28 21:00 | PTCARENOTE ---
Patient extremely confused and restless once family left. Unable to calm patient and keep her safe in bed. Attempted to give nighttime meds that included risperidol. That did not help. Notified MANAGER PATIENT because patient was also placed on medsitter and a
PCT sitting in the room. pt unable to be redirected, gets hysterical. asks to call family, which we did but then forgets after hanging up. tried to reassure pt she is safe and explain why shes here and that her daughters are aware of the situation.
MANAGER PATIENT prescribed one time dose of IV ativan, it did not help patient. Pts behavior escalated, notified MANAGER PATIENT again, one time dose of 1 mg IV haldol ordered. Will continue to monitor.
[2023-10-28] MEDS: ATIVAN 0.25 MG IV (21:20)
[2023-10-28] MEDS: NSS (PRESERVATIVE FREE) 0.125 ML IV (21:20)
[2023-10-28] MEDS: HALDOL 1 MG IV (22:37)
[2023-10-28] MEDS: DICLOFENAC 1% TOPICAL GEL TOPICAL (22:39)
[2023-10-29] MEDS: NITRO-BID TOPICAL ×2 (02:02→10:09)
[2023-10-29] MEDS: ATIVAN 0.5 MG IV (02:57)
[2023-10-29] MEDS: NSS (PRESERVATIVE FREE) 0.25 ML IV (02:59)
[2023-10-29 03:46] VITALS: BP 129/74
[2023-10-29 06:23] LABS: Hematocrit 42.9 % (37.0-47.0); Hemoglobin 12.5 g/dL (12.0-16.0); Mean Corp Hgb Conc. 29.1 g/dL (33.0-37.0); Mean Corpuscular Volume 68.8 fL (81.0-99.0); Platelet Count 615 10^3/uL (130-400); Red Blood Cell Count 6.24 10^6/uL (4.20-5.40); Red Cell Dist. Width 27.2 % (11.5-14.5); White Blood Cell Count 17.9 10^3/uL (4.8-10.8)
[2023-10-29 08:00] VITALS: BP 148/93
--- NOTE | 2023-10-29 08:43 | W.PN.CD ---
Today's Communication / Plan
-
Stop Lisinopril
Stop nitrates
Stop IV Lasix
Move to PO Lasix
On the begin Entresto (need time off BREANNA-I)
Begin Jardiance
Will need BMP in 7-10 days AND again in 3-4 weeks
As outpatient consider adding Aldactone
No HCTZ at discharge
Impression / Plan
-
Background: 88F with AF admitted with HFpEF.
Acute HFpEF, plan med rx
- Weight slowly coming down, edema improving
- Updated echo with good LV/RV and no valve disease
- Adjusting meds => see plan
- [facility]ardiance [facility] per case management note
Persistent AFIB:
-stable, rate-controlled
-Continue BB and Pradaxa
HTN
Dementia
Subjective: No CP, palps, or dyspnea.
Physical Exam
Vital Signs/Labs
Vital Signs
Temp Pulse Resp BP Pulse Ox
98.8 F 73 18 148/93 97
10/29/23 08:00 10/29/23 08:00 10/29/23 08:00 10/29/23 08:00 10/29/23 08:00
10/28/23 10/29/23 10/30/23
06:59 06:59 06:59
Actual Weight 64.552 kg
10/29/23 05:38
10/28/23 05:04
Magnesium 1.4 mg/dl (1.6-2.3) L 10/27/23 05:57
Triglycerides 63 mg/dl (10-149) 10/26/23 06:10
LDL Cholesterol, Calc 46 mg/dl 10/26/23 06:10
VLDL Cholesterol, Calc 12 mg/dl (0-30) 10/26/23 06:10
HDL Cholesterol 50 mg/dl 10/26/23 06:10
Free T4 1.10 ng/dl (0.78-2.19) 10/26/23 06:10
10/25/23
16:04
Adi-E-Xabqkatryag Pept 7780
Physical Exam
Constitutional: No acute distress
Cardiovascular: Pedal edema present
Respiratory: Respiratory effort normal and Lungs clear to auscul.
GI: Soft and Distention absent
Neuro/Psych: Alert
Data Reviewed
-
Date of Service: October 29, 2023
[2023-10-29 09:23] LABS: Blood Urea Nitrogen 35 mg/dl (7-17); Calcium 9.3 mg/dl (8.4-10.2); Carbon Dioxide 26 mmol/L (22-30); Chloride 105 mmol/L (98-107); Estimated Creatinine Clearance 30 ml/min; Glucose 93 mg/dl (70-99); Potassium 3.8 mmol/L (3.5-5.1); Sodium 136 mmol/L (135-145); eGFR 48.63
[2023-10-29] MEDS: NORVASC 5 MG PO (09:46)
[2023-10-29] MEDS: VITAMIN D3 (cholecalciferol) 50 MCG PO (09:46)
[2023-10-29] MEDS: PRADAXA 75 MG PO (09:47)
[2023-10-29] MEDS: JARDIANCE 10 MG PO (09:47)
[2023-10-29] MEDS: TOPROL XL 25 MG PO (09:47)
[2023-10-29] MEDS: RISPERDAL 0.25 MG PO (09:48)
[2023-10-29] MEDS: LIDOCAINE 4% PATCH 1 PATCH TOPICAL (09:48)
[2023-10-29] MEDS: AUGMENTIN 875 MG/125 MG 1 TABLET PO (09:48)
[2023-10-29] MEDS: ZYLOPRIM 300 MG PO (09:48)
[2023-10-29] MEDS: LEXAPRO 5 MG PO (09:48)
[2023-10-29] MEDS: PROTONIX 40 MG PO (09:48)
[2023-10-29] MEDS: DICLOFENAC 1% TOPICAL GEL 100 GRAM TOPICAL (09:49)
[2023-10-29] MEDS: LASIX IV (10:09)
[2023-10-29] MEDS: ZESTRIL PO (10:10)
[2023-10-29 11:19] VITALS: BP 162/81
--- NOTE | 2023-10-29 13:11 | W.PN.HOSP.TC ---
Today's Communication/Plan
-
d/c
Assessment / Plan
Assessment / Plan
Gen: NAD, Awake and alert
Eyes: EOMI, PERRLA, no scleral icterus.
Neck: supple.
CV: remains RRR, +S1/S2, no m/r/g.
Resp: CTAB anteriorly, no rales, wheezes, or rhonchi.
Abd: remains +BS, soft, NT, ND
Skin: No rashes. 1+ B/L LE edema
Neuro: CN 2-12 intact, non-focal.
Psych: Normal mood and affect.
CXR: Findings suggesting mild bibasilar pneumonia. Mild cardiomegaly. Small right pleural effusion.
CT A/P: Questionable transverse colon wall thickening which can be seen with colitis versus findings due to limited distention. Limited study without oral contrast. Moderate splenomegaly. Mild fecal material throughout the colon. Severe
diverticulosis. No evidence of acute diverticulitis. Moderate splenomegaly. Simple left renal cyst. Stable Cardiomegaly. Moderate right and small left pleural effusions. Moderate left lower lobe and mild right middle lobe consolidation.
Echo: EF 60-65%, no RWMA, nl RV sz/fxn, trace AR, PASP 25mmHg.
Acute CHF:
-saturating well on RA
-proBNP 7780
-was on IV Lasix, now transitioned to PO Lasix
-I/Os, daily wts, FR
-Compression therapy to lower extremity
-Cardiology following
-to start Entresto on 10/31/23
Bibasilar PNA:
-procal NEG x 2, downtrending
-Leukocytosis noted but this is chronic
-afebrile
-VSE without aspiration
-will complete 5 days Augmentin to be safe
Other problems:
Blurry vision on 10/27/23: outpatient ophthalmology follow-up
Essential hypertension: Cont BB/Norvasc, hydralazine PRN, to start Entresto on 10/31/23
h/o polycythemia vera with splenomegaly
Gout: cont allopurinol
Paroxysmal A-fib: cont BB/Pradaxa
Anxiety/mood disorder/dementia: cont Celexa/Ativan/Risperidone
GERD: cont PPI
Severe diverticulosis
DNR/Pradaxa
Total time spent on d/c = 31 min. This included today's physical exam, progress note, review of laboratory and diagnostic data, preparation of discharge documents and prescriptions, and discussions about the pt's hospital course and discharge plan
with the patient and other medical technical writer involved in the patient's care.
Anticipated Discharge: Today
Subjective/Interval History
-
Date of Service: October 29, 2023
No new complaints.
Objective Data
-
Labs:
Laboratory Results
10/29/23
05:38
WBC 17.9 H
Hgb 12.5
Hct 42.9
Plt Count 615 H
Sodium 136
Potassium 3.8
Chloride 105
Carbon Dioxide 26
BUN 35 H
Creatinine 1.1 H
Glucose 93
Calcium 9.3
Vital Signs:
Vital Signs
Temp Pulse Resp BP Pulse Ox
97.8 F 67 18 162/81 96
10/29/23 11:19 10/29/23 11:19 10/29/23 11:19 10/29/23 11:19 10/29/23 11:19
I&O
10/28/23 10/29/23 10/30/23
06:59 06:59 06:59
Intake Total 900 / 900 480 / 480
Balance 900 / 900 480 / 480
--- NOTE | 2023-10-29 13:23 | CM ---
Addendum entered by Ana Jauregui RN 10/29/23 13:47:
[facility]
Original Note:
Reviewed the chart notes. IMM reviewed and placed on chart. Patient is for discharge back to [facility] with [facility]. CM spoke with the patient's daughter Charlie via telephone. She will provide transportation
back to [facility].
Plan: Discharge to [facility]
Call report to: [phone] ask for Dewayne
Fax report to: [phone]
--- NOTE | 2023-10-29 13:55 | PTOTSP ---
Video Swallow Study
Patient presents with WFL-mild oral/ pharyngeal stages of swallowing. No aspiration occurred. Please see patient care note for full details of swallowing physiology.
Recommend:
1. Regular (pick soft/moist foods), Thin Liquids
2. Strategies: upright position, single sips/bites, soften/moisten foods, alternate solids/liquids with dry foods, double swallows (to clear mouth/throat), remain upright 30 minutes post meal as a reflux precaution
3. Medications as best tolerated
4. No further therapy warranted. Please reconsult as appropriate.
[2023-10-29 15:18] VITALS: BP 121/72
--- NOTE | 2023-10-29 15:53 | W.DCSUMMARY ---
Discharge Summary
Discharge Data
Date of Admission: 10/25/23
Date of Discharge: 10/29/23
-
Pending Results: No
Hospital Course
Primary diagnoses:
Acute heart failure with preserved ejection fraction
Secondary diagnoses:
Essential hypertension
h/o polycythemia vera with splenomegaly
Gout
Paroxysmal atrial fibrillation
Anxiety
Mood disorder
Dementia
Gastroesophageal reflux disease
Severe diverticulosis
Consultants:
Cardiology
Imaging:
CXR: Findings suggesting mild bibasilar pneumonia. Mild cardiomegaly. Small right pleural effusion.
CT A/P: Questionable transverse colon wall thickening which can be seen with colitis versus findings due to limited distention. Limited study without oral contrast. Moderate splenomegaly. Mild fecal material throughout the colon. Severe
diverticulosis. No evidence of acute diverticulitis. Moderate splenomegaly. Simple left renal cyst. Stable Cardiomegaly. Moderate right and small left pleural effusions. Moderate left lower lobe and mild right middle lobe consolidation.
Echo: EF 60-65%, no RWMA, nl RV sz/fxn, trace AR, PASP 25mmHg.
88-year-old female initially presented with lower extremity edema as outlined in H&P done on admission. Hospital course per problem list:
Acute heart failure with preserved ejection fraction: Patient was never hypoxemic. ProBNP 7780. Chest x-ray and echocardiogram above. Patient was diuresed with IV Lasix and transition to oral Lasix. She was seen in consultation by cardiology.
Entresto will be started on 10/31/23.
Bibasilar PNA: Imaging above. The patient had 2 negative procalcitonin's which were downtrending. Her leukocytosis was chronic. She was afebrile. Video swallow evaluation was without aspiration. She was given Augmentin to complete 5 days of
antibiotic therapy to be safe.
Discharge Plan
-
Patient Disposition: Home (Routine Discharge)
Discharge Diagnosis/Procedures: Acute heart failure with preserved ejection fraction, possible bibasilar pneumonia
Condition: Good
Diet: Low Cholesterol and Low Sodium
Additional Diets: Fluid restrict to 1200 cc/day
Activity: As tolerated
Driving Restrictions: No driving
Blood Work: BMP in 1 week, script from PCP
Specialty Instructions: Weigh Daily- Call MD for wt gain/loss 3 lbs overnight/5 lbs in 1 week
Instructions: *[facility] Heart Failure Instructions
Referrals:
Immanuel Cazares MD [Family Provider] - in less than 1 week
Prescriptions:
New
amlodipine 5 mg Tablet
5 mg PO DAILY Qty: 30 0RF
amoxicillin-pot clavulanate 875-125 mg Tablet
1 tab PO Q12 Qty: 7 0RF
Entresto 97-103 mg Tablet
1 tab PO BID Qty: 60 0RF
Rx Instructions:
start on 10/31/23
furosemide 40 mg Tablet
40 mg PO DAILY Qty: 30 0RF
Jardiance 10 mg Tablet
10 mg PO DAILY Qty: 30 0RF
Continued
multivitamin [Daily-Elke] Tablet
1 tab PO DAILY
risperidone 0.25 mg Tablet
0.25 mg PO BID
omeprazole 40 mg Capsule,Delayed Release(Dr/Ec)
40 mg PO DAILY
Premarin 0.625 mg/gram Cream
0.625 mg vaginal MOTH
allopurinol 300 mg Tablet
300 mg PO DAILY
metoprolol succinate 25 mg Tablet Extended Release 24 Hr
25 mg PO DAILY
escitalopram oxalate 5 mg Tablet
5 mg PO DAILY
dabigatran etexilate 75 mg Capsule
75 mg PO BID
lorazepam 0.5 mg Tablet
0.5 mg PO Q6H PRN (Reason: anxiety)
diclofenac sodium 1 % Gel
4 g TOPICAL QID PRN (Reason: knee pain)
cholecalciferol (vitamin D3) [Vitamin D3] 50 mcg (2,000 unit) Tablet
50 mcg PO DAILY
nystatin-triamcinolone 100,000-0.1 unit/gram-% Ointment
1 applic TOPICAL BID PRN (Reason: apply to affected area)
triamcinolone acetonide 0.1 % ointment
1 applic TOPICAL BID PRN (Reason: rash on lower back)
omega-3 acid ethyl esters [Lovaza] 1 gram Capsule
1 cap PO DAILY
vitamin E (dl, acetate) 180 mg (400 unit) Capsule
180 mg PO DAILY
Discontinued
lisinopril 20 mg Tablet
20 mg PO DAILY
hydrochlorothiazide 12.5 mg Capsule
12.5 mg PO DAILY
Discharge Orders:
Discharge Patient (As Directed); Ordered 10/29/23
Ordered By: Bassam Villegas
Discharge Date and Time
Print Language: PALESTINIAN
== END 2023-10-29 15:55 | disposition home or self-care (01) | DRG 291 ==
LOC: 2 NORTH 21:43
PROVIDERS: Emergency Medicine; Hospitalist; Internal Medicine Cardiovascular Disease; Registered Nurse; ADMITTING PHYSICIAN Internal Medicine; ATTENDING PHYSICIAN Internal Medicine; CONSULT PHYSICIAN Internal Medicine Cardiovascular Disease; EMERGENCY PHYSICIAN Emergency Medicine; FAMILY PHYSICIAN Family Medicine
DX: I11.0 Hypertensive heart disease with heart failure (principal); I50.31 Acute diastolic (congestive) heart failure; J18.9 Pneumonia, unspecified organism; I48.19 Other persistent atrial fibrillation; J90 Pleural effusion, not elsewhere classified; F03.94 Unspecified dementia, unspecified severity, with anxiety; F03.93 Unspecified dementia, unspecified severity, with mood disturbance; I16.1 Hypertensive emergency; R16.1 Splenomegaly, not elsewhere classified; N28.1 Cyst of kidney, acquired; K57.30 Diverticulosis of large intestine without perforation or abscess without bleeding; K21.9 Gastro-esophageal reflux disease without esophagitis; H53.8 Other visual disturbances; D72.829 Elevated white blood cell count, unspecified; Z66 Do not resuscitate; M10.9 Gout, unspecified; M19.90 Unspecified osteoarthritis, unspecified site; I83.90 Asymptomatic varicose veins of unspecified lower extremity; D45 Polycythemia vera; Z87.891 Personal history of nicotine dependence; Z88.0 Allergy status to penicillin; Z87.440 Personal history of urinary (tract) infections
CPT/HCPCS: 71046; 74177; 74230; 80048; 80053; 80061; 81003; 81015; 82248; 82728; 83735; 83880; 84145; 84439; 84443; 85025; 85027; 87070; 87086; 92610; 92611; 93005; 93306; 96374; 96375; 97116; 97162; 97530; 99285; Q9967